=== PATIENT | male | born 1960 | race Caucasian/White ===

== ENCOUNTER → 2017-06-08 | Outpatient (CLI) | payer OTHER ==
[~2017-06-08] MED LIST: ACCUPRIL40 MG PO; ACTOPLUS MET 11 EAC1 PO; AMARYL4 MG PO; AMBIEN 10 MG TA10 MG PO; AMBIEN 5 MG TABL5 M1 PO; AMLODIPINE BESY10 MG PO; ASPIRIN EC81 M1 PO; ASPIRIN81 MG PO; ATIVAN0.5 MG PO; COREG CR20 MG PO; COREG6.25 MG PO; COZAAR 50 MG TA50 M2 PO; DILTIAZEM 24HR300 MG PO; FLOMAX0.4 MG PO; HUMULIN R500 UNIT/M; HYDRALAZINE 5050 MG PO; HYDROCODON-ACE1 EAC8 PO; LASIX 40 MG TAB40 M2 PO; LEVAQUIN 250 M250 MG PO; LIPITOR 20 MG T20 M1 PO; POTASSIUM20 PO; RESTORIL30 MG PO; TRIAMCINOLONE A80 G2 TOP
[2017-06-08 11:00] VITALS: BP 160/88
[2017-06-08 11:30] VITALS: BP 160/88
== END ==
LOC: OPONC 09:17
DX: L03.116 Cellulitis of left lower limb (principal)
CPT/HCPCS: 95000

== ENCOUNTER → 2017-06-09 | Outpatient (CLI) | payer OTHER ==
[2017-06-09 14:17] VITALS: BP 161/80
== END ==
LOC: OPONC 11:57
DX: L03.116 Cellulitis of left lower limb (principal)
CPT/HCPCS: 95000

== ENCOUNTER → 2017-06-10 | Outpatient (CLI) | payer OTHER ==
[2017-06-10 09:50] VITALS: BP 164/92
== END ==
LOC: OPONC 00:18
DX: L03.116 Cellulitis of left lower limb (principal)
CPT/HCPCS: 95000

== ENCOUNTER → 2017-06-11 | Outpatient (CLI) | payer OTHER | LOC: OPONC | DX: L03.116 Cellulitis of left lower limb (principal) | CPT/HCPCS: 95000 ==

== ENCOUNTER → 2017-06-12 | Outpatient (CLI) | payer OTHER | LOC: OPONC | DX: L03.116 Cellulitis of left lower limb (principal) | CPT/HCPCS: 95000 ==

== ENCOUNTER → 2017-06-14 | Outpatient (CLI) | payer OTHER ==
[2017-06-14 09:18] VITALS: BP 190/95
== END ==
LOC: OPONC
DX: L03.116 Cellulitis of left lower limb (principal)
CPT/HCPCS: 95000